=== PATIENT | male | born 1990 | race Caucasian/White ===

== ENCOUNTER 2018-06-29 09:40 | Emergency (ER) | payer OTHER ==
[2018-06-29] MEDS: ONDANSETRON (ODT) 4 MG TAB ODT (10:19)
[2018-06-29] MEDS: HYDROCODONE/APAP (5/325) TAB PO (10:19)
== END 2018-06-29 11:42 | disposition home or self-care (01) ==
LOC: FTE 09:40
DX: S09.90XA Unspecified injury of head, initial encounter (principal); R51 Headache; Y08.89XA Assault by other specified means, initial encounter
CPT/HCPCS: 70450; 99284-25